=== PATIENT | female | born 1975 | race American Indian/Alaskan Native ===

== ENCOUNTER 2017-07-20 08:18 | Emergency (ER) | payer OTHER ==
--- NOTE | 2017-07-20 08:47 | Emergency Department Report ---
Minor Respiratory - HPI Chief Complaint: Upper Respiratory Infection Stated Complaint: FLU LIKE SYMPTOMS Time Seen by Provider: 07/20/17 08:37 Duration: 4 Days Pain Location: Throat, Nose (congestion), Chest (tightness with cough) Severity: moderate Minor Respiratory: Yes Rhinorrhea, Yes Sore Throat, Yes Able to Tolerate Fluids , Yes Cough, Yes Sick Contacts (returning from cruise), Yes Chest Pain ( tightness with cough), Yes Fever, No Ear Pain, No Hemoptysis, No Shortness of Breath Other History: This is a 42 y.o. A.A. female that presents with cough, body aches, congestion, and fever for 4 days. Patient reports returning from [facility] [employer] Saturday feeling terrible. Patient reports being around so many people and think she possibly caught something while on the trip. She has been coughing so much her chest gets tight with each cough. She is taking mucinex and nyquil for symptoms with no improvement. She noticed her fever will go away while taking medication but returns. She started having body aches 2 days ago and thought well maybe this is the flu. Denies SOB, nausea/vomiting, sore throat , and abdominal pain. ED Review of Systems ROS: Stated complaint: FLU LIKE SYMPTOMS Other details as noted in HPI Constitutional: denies: chills, fever ENT: congestion. denies: ear pain, throat pain, dental pain, hearing loss, epistaxis Respiratory: cough. denies: shortness of breath, wheezing Cardiovascular: denies: chest pain (tightness with cough), palpitations, dyspnea on exertion, edema, syncope Gastrointestinal: denies: abdominal pain, nausea, vomiting, diarrhea Neurological: headache. denies: weakness, numbness, paresthesias Psychiatric: denies: anxiety, depression ED Past Medical Hx - Past Medical History Previous Medical History?: Yes Additional medical history: Breast Ca - Surgical History Additional Surgical History: Chris mastectomy - Social History Smoking Status: Never Smoker Substance Use Type: Alcohol - Medications Home Medications: Home Medications Medication Instructions Recorded Confirmed Last Taken Type Azithromycin [Zithromax Z-BE] 250 mg PO DAILY 5 Days #6 tab 07/20/17 Unknown Rx Benzonatate [Tessalon Perles] 100 mg PO Q8HR #30 capsule 07/20/17 Unknown Rx Fluticasone [Flonase] 1 spray NS QDAY #1 bottle 07/20/17 Unknown Rx Minor Respiratory Exam - Exam General: Vital signs noted. No distress. Alert and acting appropriately. HEENT: Yes Pharyngeal Erythema, Yes Moist Mucous Membranes, Yes Rhinorrhea ( swollen, red turbinates, clear discharge), No Pharyngeal Exudates, No Conjuctival Injection, No Frontal Tenderness, No Maxillary Tenderness Ear: Neither TM Bulge, Neither TM Erythema, Neither EAC Pain, Neither EAC Discharge Neck: Yes Supple, No Adenopathy Lungs: Yes Ronchi (throughout), No Good Air Exchange, No Wheezes, No Stridor, No Cough, No Labored Respirations, No Retractions, No Use of Accessory Muscles, No Other Abnormal Lung Sounds Heart: Yes Regular, No Murmur Abdomen: Yes Normal Bowel Sounds, No Tenderness, No Peritoneal Signs Skin: No Rash, No Edema Neurologic: Alert and oriented, no deficits. Musculoskeletal: Unremarkable. ED Course Vital Signs 07/20/17 08:21 Temperature 98.9 F Pulse Rate 84 Respiratory 18 Rate Blood Pressure 125/74 O2 Sat by Pulse 99 Oximetry ED Medical Decision Making - Radiology Data Radiology results: report reviewed CXR: PA and lateral chest radiographs demonstrate subtle right mid to lower lung haziness, minimally asymmetric to the opposite side, though nonspecific in light of overlying postsurgical changes/right axillary surgical clips. No large pleural effusions or CHF. - Medical Decision Making This is a 42 y.o. female that presents with fever, cough, congestion, and body aches for 4 days. Recent travel to [facility] returned Saturday sick. Patient examined by me. Vitals stable. Obtained rapid influenza and CXR. CXR: PA and lateral chest radiographs demonstrate subtle right mid to lower lung haziness, minimally asymmetric to the opposite side, though nonspecific in light of overlying postsurgical changes/right axillary surgical clips. No large pleural effusions or CHF. Rapid influenza negative. Treat outpatient for bronchitis with zpak and benzonatate. Discussed plan with patient and agreed with plan. Discharged home in stable condition. F/U with PCP in 2-3 days. Critical care attestation.: If time is entered above; I have spent that time in minutes in the direct care of this critically ill patient, excluding procedure time. ED Disposition Clinical Impression: Bronchitis Disposition: DC-01 TO HOME OR SELFCARE Is pt being admited?: No Does the pt Need Aspirin: No Condition: Stable Instructions: Acute Bronchitis (ED) Additional Instructions: Increase fluid intake to prevent dehydration. Wash hands frequently. Take tylenol or ibuprofen every 4-6 hours for relief of headache, fever, and body aches. Follow up with primary care provider in 2-3 days if symptoms are not improving. Prescriptions: Azithromycin [Zithromax Z-BE] 250 mg PO DAILY 5 Days #6 tab Benzonatate [Tessalon Perles] 100 mg PO Q8HR #30 capsule Fluticasone [Flonase] 1 spray NS QDAY #1 bottle Referrals: [facility] [Outside] - 3-5 Days [facility] [Outside] - 3-5 Days [facility] [Outside] - 3-5 Days Time of Disposition: 10:45 Print Language: MACEDONIAN
[2017-07-20 09:14] LABS: HCG Qualitative,Urine Negative (Negative)
--- NOTE | 2017-07-20 09:14 | XRay Report ---
CHEST 2 VIEWS INDICATION: Cough, recent travel. Evaluate for pneumonia. COMPARISON: None similar at this institution. FINDINGS: PA and lateral chest radiographs demonstrate subtle right mid to lower lung haziness, minimally asymmetric to the opposite side, though nonspecific in light of overlying postsurgical changes/right axillary surgical clips. No large pleural effusions or CHF. Normal cardiomediastinal silhouette. Left subclavian chest port tip at the cavoatrial junction. Unremarkable bones. CONCLUSION: Findings, as above. Please correlate clinically and directly compared with prior chest imaging, if available. Thank you for the opportunity to participate in this patient's care.
[2017-07-20 10:51] VITALS: BP 111/81
== END 2017-07-20 10:52 | disposition home or self-care (01) ==
LOC: ED 08:18
DX: J40 Bronchitis, not specified as acute or chronic (principal)
CPT/HCPCS: 71046; 81025; 87086; 87400